=== PATIENT | female | born 1945 | race Caucasian/White ===

== ENCOUNTER 2017-11-16 07:56 | Emergency (ER) | payer OTHER ==
[~2017-11-16] VITALS: Ht 157.5 cm; Wt 74.8 kg
[~2017-11-16 07:56] MED LIST: ACTONEL150 MG; ADULT LOW DOSE81 MG PO; ALTACE10 M1; ALTACE10 M1 PO; ALTACE10 MG PO; ALTACE5 M1 PO; AMLODIPINE BESYL5 MG PO; ANALGESIC325 MG PO; B COMPLETE1 EAC1 PO; BACTRIM DS TAB1 EACH PO; BENTYL 10 MG CA10 M1 PO; BETIMOL10 ML; COUMADIN 1MG TAB1 M1 PO; COUMADIN 3 MG TA3 MG; COUMADIN 3 MG TA3 MG NG; COUMADIN 4 MG TA4 M1 PO; DICLOXACILLIN500 MG PO; DIPHENHIST50 MG PO; DUREZOL5 ML; FLECAINIDE ACE100 MG PO; FOSAMAX; GARLIC OIL1 EACH; HYDROCODONE-AP1 EAC5; IRON325 PO; KEFLEX500 M1 PO; KEFLEX500 MG PO; LOPRESSOR100 M1 PO; LYRICA; METOPROLOL 100100 M1 PO; MOBIC15 MG PO; NEVANAC; NORCO 5-325 TA1 EACH PO; OMEGA 3-6-9 CO1 EACH; OSTEOPOROSIS MED; PREDNISONE50 MG PO; PROTONIX40 M2 PO; TUMS PO; VISTARIL 25 MG25 M1 PO; VITAMIN C + RO500 MG PO; VITAMIN D400 UNI1 PO; VITAMIN E400 UNI6
[2017-11-16 08:49] LABS: ABSOLUTE EOSINOPHILS 0.1 thou/uL (0.0-0.7); ABSOLUTE LYMPHOCYTES 0.9 thou/uL (0.8-5.3); ABSOLUTE MONOCYTES 0.4 thou/uL (0.0-1.2); ABSOLUTE NEUTROPHILS 3.2 thou/uL (1.6-8.1); BASOPHILS 0.8 %; EOSINOPHILS 2.7 %; HEMATOCRIT 42.1 % (37.0-47.0); HEMOGLOBIN 14.4 gm/dL (12.0-15.0); LYMPHOCYTES 19.9 %; MCH 31.9 pg (26.0-34.0); MCHC 34.3 g/dL (28.0-37.0); MONOCYTES 8.3 %; MPV 8.3 fl. (7.2-11.1); NUCLEATED RBCS 0 /100WBC; PLATELET COUNT* 257 thou/uL (150-400); POLYS 68.3 %; RBC 4.52 mil/uL (4.20-5.00); RDW-CV 13.6 % (10.5-14.5); WBC 4.7 thou/uL (4.0-11.0)
[2017-11-16 08:59] LABS: INR 1.7; PROTIME 16.6 Seconds (9.20-11.50)
[2017-11-16 09:32] LABS: ANION GAP 4 mmol/L (7-16); BUN 11 mg/dL (7-18); CALCIUM 8.7 mg/dL (8.5-10.1); CHLORIDE 106 mmol/L (98-107); CO2 30 mmol/L (21-32); CREATININE 0.9 mg/dL (0.6-1.3); GLUCOSE 95 mg/dL (70-99); POTASSIUM 3.8 mmol/L (3.5-5.1); SODIUM 140 mmol/L (136-145)
[2017-11-16 09:41] LABS: ALKALINE PHOSPHATASE 63 U/L (46-116); SGOT 24 U/L (15-37); SGPT 26 U/L (30-65); TOTAL PROTEIN 6.7 g/dL (6.4-8.2); TROPONIN-I LEVEL <0.06 ng/mL (<0.06)
[2017-11-16 09:48] LABS: ALBUMIN 3.5 g/dL (3.4-5.0)
[2017-11-16 11:24] VITALS: BP 132/69
--- NOTE | 2017-11-16 15:01 | EKG ---
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: JESÚS : 1945 Requested By: Talia Eubanks Order Number: [id number] MD: David Lowery Measurements Intervals [place] Rate: 59 P: 49 CO: 226 QRS: -43 QRSD: 118 T: -17 QT: 568 QTc: 563 Interpretive Statements Sinus rhythm Atrial premature complex Prolonged [place] interval Incomplete right bundle branch block left axis Compared to ECG 01/02/2016 09:50:05 Atrial premature complex(es) now present First degree AV block now present Incomplete right bundle-branch block now present Electronically Signed On 11-16-2017 15:01:42 CDT by David Lowery [email or web address] <ELECTRONICALLY SIGNED> By: David Lowery MD, [facility] 11/16/17 1501 0806 0806 David Lowery MD, [facility] /EPI
== END 2017-11-16 11:24 | disposition home or self-care (01) ==
LOC: M.ERS 07:56
PROVIDERS: Personal Emergency Response Attendant
DX: R07.89 Other chest pain (principal); I10 Essential (primary) hypertension; I48.91 Unspecified atrial fibrillation; Z91.040 Latex allergy status; Z91.041 Radiographic dye allergy status; Z88.8 Allergy status to other drugs, medicaments and biological substances; Z91.012 Allergy to eggs; Z91.011 Allergy to milk products; Z91.013 Allergy to seafood; Z90.49 Acquired absence of other specified parts of digestive tract

== ENCOUNTER → 2017-11-29 | Outpatient (CLI) | payer OTHER | LOC: M.ULTRA 12:42 | DX: I73.9 Peripheral vascular disease, unspecified (principal); M79.89 Other specified soft tissue disorders; M79.662 Pain in left lower leg; M79.661 Pain in right lower leg; R10.9 Unspecified abdominal pain ==

== ENCOUNTER 2018-12-23 18:20 | Emergency (ER) | payer OTHER ==
[~2018-12-23] VITALS: Ht 157.5 cm; Wt 74.8 kg
[2018-12-23] MEDS ORDERED: COQ-10100 MG PO (18:34)
[2018-12-23] MEDS ORDERED: LIPITOR10 MG PO (18:35)
[2018-12-23] MEDS ORDERED: COUMADIN 3 MG TA3 M1 PO (18:35)
[2018-12-23] MEDS ORDERED: COUMADIN 4 MG TA4 M1 PO (18:38)
[2018-12-23 19:31] LABS: APTT 38.1 Seconds (25.0-31.3); INR 2.3; PROTIME 22.6 Seconds (9.20-11.50)
[2018-12-23 19:48] VITALS: BP 138/70
== END 2018-12-23 19:50 | disposition home or self-care (01) ==
LOC: M.ERS 18:20
PROVIDERS: Nurse Practitioner Family
DX: S70.11XA Contusion of right thigh, initial encounter (principal); I10 Essential (primary) hypertension; K58.9 Irritable bowel syndrome, unspecified; I48.91 Unspecified atrial fibrillation; Z98.42 Cataract extraction status, left eye; Z90.89 Acquired absence of other organs; Z90.13 Acquired absence of bilateral breasts and nipples; Z90.49 Acquired absence of other specified parts of digestive tract; Z91.012 Allergy to eggs; Z91.013 Allergy to seafood; Z91.040 Latex allergy status; Z91.011 Allergy to milk products; Z88.8 Allergy status to other drugs, medicaments and biological substances; W10.9XXA Fall (on) (from) unspecified stairs and steps, initial encounter; Y92.89 Other specified places as the place of occurrence of the external cause; Y93.89 Activity, other specified; Y99.8 Other external cause status

== ENCOUNTER → 2018-12-26 | Outpatient (CLI) | payer OTHER ==
[~2018-12-26] MED LIST changes: +COQ-10100 MG PO; +COUMADIN 3 MG TA3 M1 PO; +LIPITOR10 MG PO
== END ==
LOC: M.ULTRA 11:21
DX: M79.604 Pain in right leg (principal); M79.81 Nontraumatic hematoma of soft tissue

== ENCOUNTER → 2019-01-25 | Outpatient (CLI) | payer OTHER ==
--- NOTE | 2019-01-25 14:57 | 2DMMODE ---
[place] [address] 2 D/M-MODE ECHOCARDIOGRAM Name: MEGGANARMIDA J Room: [facility]#: [id number] Admission: 01/25/19 Attend Phys: Adela Patton Discharge: Date of : 49 Date of Service: 01/25/19 1457 Report #: [id number] THIS REPORT FOR: //name// APPROVED REPORT Study performed: 01/25/2019 10:52:24 EXAM: Comprehensive 2D, Doppler, and color-flow Echocardiogram Patient Location: Out-Patient Status: routine BSA: 1.76 HR: 70 bpm BP: 132/77 mmHg Rhythm: NSR Other Information Study Quality: Good Indications Atrial Fibrillation Dyspnea 2D Dimensions IVSd: 11.22 (7-11mm) LVOT Diam: 20.37 (18-24mm) LVDd: 49.28 mm PWd: 10.38 (7-11mm) Ascending Ao: 29.84 (22-36mm) LVDs: 29.51 (25-40mm) Aortic Root: 30.92 mm Volumes Left Atrial Volume (Systole) LA ESV Index: 49.00 mL/m2 Aortic Valve AoV Peak Leo.: 1.46 m/s AO Peak Gr.: 8.53 mmHg LVOT Max P.22 mmHg AO Mean Gr.: 4.02 mmHg LVOT Mean P.47 mmHg LVOT Max V: 1.25 m/s AO V2 VTI: 32.51 cm LVOT Mean V: 0.70 m/s MARLENE (VTI): 2.70 cm2 LVOT V1 VTI: 26.97 cm Mitral Valve E/A Ratio: 0.73 MV Decel. Time: 246.56 [place] [address] 2 D/M-MODE ECHOCARDIOGRAM Name: ARMIDA BRODERICK [id number] Admission: 01/25/19 Attend Phys: Adela Patton Discharge: Date of : 49 Date of Service: 01/25/19 1457 Report #: [id number] MV E Max Leo.: 0.66 m/s MV PHT: 71.50 ms MVA (PHT): 3.08 cm2 TDI E/Lateral E': 8.25 E/Medial E': 9.43 Medial E' Leo.: 0.07 m/s Lateral E' Leo.: 0.08 m/s Pulmonary Valve PV Peak Leo.: 1.13 m/s PV Peak Gr.: 5.11 mmHg Tricuspid Valve RAP Estimate: 5.00 mmHg TR Peak Gr.: 19.15 mmHg RVSP: 24.00 mmHg PA Pressure: 24.00 mmHg Left Ventricle The left ventricle is normal size. There is normal LV segmental wall motion. There is normal left ventricular wall thickness. Left ventricular systolic function is normal. The left ventricular ejection fraction is within the normal range. LVEF is 60%. Grade I - abnormal relaxation pattern. Right Ventricle The right ventricle is normal size. The right ventricular systolic function is normal. Atria Left atrium is moderately dilated. The right atrium size is normal. Aortic Valve The aortic valve is normal in structure. No aortic regurgitation is present. There is no aortic valvular stenosis. Mitral Valve The mitral valve is normal in structure. Mild mitral regurgitation. No evidence of mitral valve stenosis. Tricuspid Valve The tricuspid valve is normal in structure. Trace tricuspid regurgitation. No pulmonary hypertension. Pulmonic Valve The pulmonary valve is normal in structure. [place] [address] 2 D/M-MODE ECHOCARDIOGRAM Name: ARMIDA BRODERICK Room: [facility]#: [id number] Admission: 01/25/19 Attend Phys: Adela Patton Discharge: Date of : 49 Date of Service: 01/25/19 1457 Report #: [id number] valvular regurgitation. Great Vessels The aortic root is normal in size. IVC is normal in size and collapses >50% with inspiration. Pericardium There is no pericardial effusion. <Conclusion> The left ventricle is normal size. There is normal left ventricular wall thickness. Left ventricular systolic function is normal. The left ventricular ejection fraction is within the normal range. Grade I - abnormal relaxation pattern. The right ventricle is normal size. Left atrium is moderately dilated. The right atrium size is normal. The aortic valve is normal in structure. The mitral valve is normal in structure. Mild mitral regurgitation. The tricuspid valve is normal in structure. IVC is normal in size and collapses >50% with inspiration. There is no pericardial effusion. There is normal LV segmental wall motion. LVEF is 60%. <ELECTRONICALLY SIGNED> By: Luc Freedman MD, FACC 01/25/19 1457 1457 1457 Luc Freedman MD, FACC /INF
--- NOTE | 2019-01-25 17:09 | CARDNUC ---
[place] [address] CARDIAC NUCLEAR IMAGING REPORT Name: MEGGANARMIDA J Room: [facility]#: [id number] Admission: 01/25/19 Attend Phys: Adela Patton Discharge: Date of : 49 Date of Service: 01/25/19 1709 Report #: [id number] THIS REPORT FOR: //name// APPROVED REPORT Imaging Protocol: Rest Tc-99m/Stress Tc-99m 1 day Study performed: 01/25/2019 08:15:00 Indication: Atrial Fibrillation Patient Location: Out-Patient Stress Tech: Cristina Buck Stress Nurse: Daisy Collins RN NM Tech:JOSE Way Ht: 5 ft 2 in Wt: 162 lbs BSA: 1.75 m2 BMI: 29.62 Medical History Medical History: Atrial Fibrillation, HTN, Hyperlipidemia Medications: aroevastatin, flecainide, metoprolol, ramipril, warfarin Allergies: cortisone, iodine Cardiac Risk Factors: age, Hyperlipidemia, HTN, FHX of CAD Exercise History: Sedentary Meds Held (24 hrs): metoprolol Resting Data Rest SPECT myocardial perfusion imaging was performed in supine position 30 minutes following the intravenous injection of 10.2 mCi of Tc-99m Sestamibi. Time of rest injection: 0855 Date: 01/25/2019 The images were gated to evaluate regional wall motion and calculate left ventricular ejection fraction. Administration Route: IV Administration Site: Right AC Pharmacologic Stress Pharmacologic stress test was performed by injecting Regadenoson 0.4 mg IV push over 10-15 seconds immediately followed by the intravenous injection of 36.0 mCi of Tc-99m Sestamibi. Time of stress injection: 1050 Date: 01/25/2019 Administration Route: IV Administration Site: Right AC Gated Stress SPECT was performed 40 minutes [place] [address] CARDIAC NUCLEAR IMAGING REPORT Name: ARMIDA BRODERICK [id number] Admission: 01/25/19 Attend Phys: Adela Patton Discharge: Date of : 49 Date of Service: 01/25/19 1709 Report #: [id number] injection. The images were gated to evaluate regional wall motion and calculate left ventricular ejection fraction. Prone imaging was performed. Stress Test Details Stress Test: Pharmacologic stress testing performed using 0.4 mg of regadenoson per 5 mL given IV over 10 seconds. Reason for pharmacologic stress test: physical limitation. HR Max Heart Rate (APMHR): 149 bpm Resting HR: 62 bpm Target HR (85% APMHR): 126 bpm Max HR Achieved: 88 bpm % of APMHR: 59 Recovery HR: 80 bpm BP Resting BP: 135/92 mmHg Max BP: 99/67 mmHg Recovery BP: 132/77 mmHg ECG Resting ECG: Sinus Rhythm Stress ECG: Sinus Rhythm ST Change: None Arrhythmia: None Recovery ECG: Sinus Rhythm Recovery ST Change: None Recovery Arrhythmia: None Clinical Reason for Termination: Completed protocol Exercise duration: 0 min sec Exercise capacity: 1 METs The patient tolerated Lexiscan infusion without significant symptoms. Nurse Comments pt needs assistance in walking Stress ECG Conclusion The baseline 12-lead EKG shows sinus rhythm thousand Mr. T wave abnormality. EKGs obtained during and post Lexiscan infusion show sinus rhythm with no significant ST or T wave changes when compared to baseline. There were no stress-induced arrhythmias[place] [address] CARDIAC NUCLEAR IMAGING REPORT Name: ARMIDA BRODERICK Room: [facility]#: [id number] Admission: 01/25/19 Attend Phys: Adela Patton Discharge: Date of : 49 Date of Service: 01/25/19 1709 Report #: [id number] Study: Good Artifact: Mild apical thinning,Diaphragmatic artifact Study Data At rest, the left ventricular ejection fraction was 60%.. Post stress, the left ventricular ejection was 68%.. TID = 0.97. Perfusion There is a focal perfusion defect of mild intensity involving the apex on both rest and stress images. Wall motion in this region on gated studies appears normal. This is likely due to apical thinning artifact. On supine images at stress and rest there is mild photopenia in the inferior wall that resolves completely on post stress prone imaging suggesting diaphragmatic attenuation artifact. No reversible defects were identified. Wall Motion Normal left ventricular wall motion. Nuclear Conclusion ECG Findings: negative for ischemia Clinical Findings: negative for ischemia Nuclear Findings: negative for ischemia Exercise Capacity: not assessed Left Ventricular Function: normal Risk Study: low Myocardial perfusion images show no reversible defect to suggest ischemia. Focal defects of the inferior wall are due to diaphragmatic attenuation artifact. Focal defect of the apex is due to apical thinning. Global LV systolic function is normal with normal wall motion. This is a low risk study. <Conclusion> The baseline 12-lead EKG shows sinus rhythm thousand Mr. T wave abnormality. EKGs obtained during and post Lexiscan infusion show sinus rhythm with no significant ST or T wave changes when compared to baseline. There were no stress-induced arrhythmias. <ELECTRONICALLY SIGNED> By: Chris Mtz MD, FACC 01/25/191708 08 08 Chris Mtz MD, FACC /INF
== END ==
LOC: M.NUC 08:12
DX: I48.0 Paroxysmal atrial fibrillation (principal); I10 Essential (primary) hypertension; R06.02 Shortness of breath; Z79.899 Other long term (current) drug therapy

== ENCOUNTER → 2019-04-18 | Outpatient (CLI) | payer OTHER | LOC: M.RAD 15:41 | DX: M25.861 Other specified joint disorders, right knee (principal); W19.XXXA Unspecified fall, initial encounter ==

== ENCOUNTER 2019-06-15 11:04 | Emergency (ER) | payer OTHER ==
[~2019-06-15] VITALS: Ht 157.5 cm; Wt 74.8 kg
[2019-06-15 12:46] VITALS: BP 120/59
== END 2019-06-15 12:46 | disposition home or self-care (01) ==
LOC: M.ERS 11:04
DX: S82.51XA Displaced fracture of medial malleolus of right tibia, initial encounter for closed fracture (principal); I10 Essential (primary) hypertension; I48.91 Unspecified atrial fibrillation; K58.9 Irritable bowel syndrome, unspecified; Z90.49 Acquired absence of other specified parts of digestive tract; Z90.13 Acquired absence of bilateral breasts and nipples; Z91.013 Allergy to seafood; Z91.040 Latex allergy status; Z91.012 Allergy to eggs; Z88.8 Allergy status to other drugs, medicaments and biological substances; W18.39XA Other fall on same level, initial encounter; Y93.89 Activity, other specified; Y92.89 Other specified places as the place of occurrence of the external cause; Y99.8 Other external cause status

== ENCOUNTER 2020-10-02 06:02 | Observation (INO) | payer OTHER ==
[~2020-10-02] VITALS: Ht 157.5 cm; Wt 71.9 kg
[2020-10-02 06:05] VITALS: BP 124/97
[2020-10-02 06:35] LABS: ABSOLUTE EOSINOPHILS 0.1 thou/uL (0.0-0.7); ABSOLUTE LYMPHOCYTES 1.1 thou/uL (0.8-5.3); ABSOLUTE MONOCYTES 0.5 thou/uL (0.0-1.2); ABSOLUTE NEUTROPHILS 4.9 thou/uL (1.6-8.1); BASOPHILS 0.7 %; EOSINOPHILS 0.9 %; HEMATOCRIT 38.7 % (37.0-47.0); LYMPHOCYTES 16.4 %; MCH 32.1 pg (26.0-34.0); MCHC 33.7 g/dL (28.0-37.0); MCV 95.2 fL (80.0-100.0); MONOCYTES 7.1 %; MPV 7.9 fl. (7.2-11.1); NUCLEATED RBCS 0 /100WBC; PLATELET COUNT* 324 thou/uL (150-400); POLYS 74.9 %; RBC 4.06 mil/uL (4.20-5.00); RDW-CV 15.4 % (10.5-14.5); WBC 6.5 thou/uL (4.0-11.0)
[2020-10-02 06:40] LABS: CALCIUM 8.7 mg/dL (8.5-10.1); CREATININE 0.8 mg/dL (0.6-1.3)
[2020-10-02 06:50] LABS: ALBUMIN 3.7 g/dL (3.4-5.0); MAGNESIUM 2.1 mg/dL (1.8-2.4); POTASSIUM 2.9 mmol/L (3.5-5.1); TOTAL BILIRUBIN 1.1 mg/dL (<0.1-1.0); TOTAL PROTEIN 6.9 g/dL (6.4-8.2)
--- NOTE | 2020-10-02 07:36 | NUR ---
PT C/O PAIN AND SWELLING TO LEFT KNEE AFTER A FALL SHE STATES WAS APPROX 3 MONTHS AGO. PT STATES SHE HAS BEEN SEEN BY HER DOCTOR FOR THIS ALREADY. PT DENIES NEED FOR AN X-RAY OF KNEE AT THIS TIME.
[2020-10-02 08:07] LABS: URINE BILIRUBIN NEGATIVE (Negative); URINE BLOOD TRACE (Negative); URINE CLARITY CLEAR; URINE COLOR YELLOW; URINE GLUCOSE-RANDOM NEGATIVE (Negative); URINE KETONES NEGATIVE (Negative); URINE LEUKOCYTES-REFLEX NEGATIVE (Negative); URINE NITRITE-REFLEX NEGATIVE (Negative); URINE PROTEIN NEGATIVE (Negative); URINE UROBILINOGEN 0.2 E.U./dl (0.2-1.0)
--- NOTE | 2020-10-02 08:33 | NUR ---
PT NOR PT'S FAMILY MEMBERS KNOW EXACTLY WHAT THE PATIENT'S ALLERGY TO IODINE IS. DR. SERVIN IS SPEAKING WITH PT AT THIS TIME WITH CONCERNS OF CTA SCAN VS VQ SCAN.
[2020-10-02 10:01] LABS: CALCIUM 8.4 mg/dL (8.5-10.1); CREATININE 0.6 mg/dL (0.6-1.3); POTASSIUM 3.5 mmol/L (3.5-5.1)
--- NOTE | 2020-10-02 12:02 | EKG ---
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: [facility] : 1945 Requested By: Becca Gross Order Number: [id number] MD: David Lowery Measurements Intervals [place] Rate: 62 P: 44 SD: 220 QRS: -61 QRSD: 106 T: -8 QT: 468 QTc: 476 Interpretive Statements Sinus rhythm Prolonged SD interval Consider left atrial enlargement Inferior infarct, old Baseline wander in lead(s) V4 Compared to ECG 11/16/2017 08:06:17 Atrial premature complex(es) no longer present Electronically Signed On 10-02-2020 12:02:28 CDT by David Lowery [email or web address] <ELECTRONICALLY SIGNED> By: David Lowery MD, [facility] 10/02/20 1202 7 06 David Lowery MD, [facility] /EPI
[2020-10-02 12:45] VITALS: BP 168/64
--- NOTE | 2020-10-02 13:31 | NUR ---
PT'S SISTER REPORTS THAT THE PATIENT WAS TAKEN OFF OF HER COUMADIN 7.5 MG DOSAGE FOR THE LAST 3 DAYS DUE TO ELEVATED INR LEVELS. THE PATIENT IS SUPPOSED TO START TAKING HER USUAL DOSAGE OF COUMADIN 7.5 MG AGAIN TONIGHT 10/02/20.
[2020-10-02 14:41] VITALS: BP 168/64
[2020-10-02 15:01] VITALS: BP 115/98
[2020-10-02 20:00] VITALS: BP 143/64
--- NOTE | 2020-10-02 20:00 | NUR ---
RECEIVED REPORT AND ASSUMED CARE OF PT, ASSESSMENT COMPLETED. PT SITTING UP IN BED RUBBING HER LT KNEE AND DEBORAH LOWER LEGS. PT ABLE TO ANSWER ORIENTATION QUESTIONS BUT CONVERSATION NOT CLEAR. TELEMETRY ON SHOWING SR WITH 1ST AVB AND BBB. WILL CONT TO MONITOR AND ASSIST NEEDED.
[2020-10-02 20:59] LABS: INR 1.8; PROTIME 18.4 Seconds (9.20-11.50)
[2020-10-02 23:51] VITALS: BP 133/56
[2020-10-03 03:46] VITALS: BP 143/69
[2020-10-03 04:35] LABS: ABSOLUTE EOSINOPHILS 0.1 thou/uL (0.0-0.7); ABSOLUTE LYMPHOCYTES 1.4 thou/uL (0.8-5.3); ABSOLUTE MONOCYTES 0.5 thou/uL (0.0-1.2); ABSOLUTE NEUTROPHILS 3.2 thou/uL (1.6-8.1); BASOPHILS 0.6 %; EOSINOPHILS 2.4 %; HEMATOCRIT 34.6 % (37.0-47.0); HEMOGLOBIN 11.9 gm/dL (12.0-15.0); LYMPHOCYTES 27.3 %; MCH 32.5 pg (26.0-34.0); MCHC 34.4 g/dL (28.0-37.0); MCV 94.5 fL (80.0-100.0); MONOCYTES 9.1 %; MPV 7.8 fl. (7.2-11.1); NUCLEATED RBCS 0 /100WBC; PLATELET COUNT* 270 thou/uL (150-400); POLYS 60.6 %; RBC 3.67 mil/uL (4.20-5.00); RDW-CV 15.4 % (10.5-14.5); WBC 5.2 thou/uL (4.0-11.0)
[2020-10-03 04:48] LABS: INR 1.2; PROTIME 12.8 Seconds (9.20-11.50)
[2020-10-03 04:50] LABS: CALCIUM 8.7 mg/dL (8.5-10.1); CREATININE 0.7 mg/dL (0.6-1.3); POTASSIUM 3.3 mmol/L (3.5-5.1)
--- NOTE | 2020-10-03 06:56 | NUR ---
SLEPT WELL TONIGHT. ASSISTED TO BR AND BACK, GAIT UNSTEADY AND HOLDS ONTO FURNITURE ALSO. DENIES CHEST PAIN OR SOA. ASSESSMENT UNCHANGED. HS GOALS OF REST AND SAFETY ACHIEVED. HOURLY ROUNDING OBSERVED.
[2020-10-03 08:00] VITALS: BP 147/79
[2020-10-03] MEDS ORDERED: LIPITOR 20 MG T20 M1 PO (10:05)
[2020-10-03] MEDS ORDERED: DICLOFENAC SOD100 G1 TOP (10:05)
[2020-10-03] MEDS ORDERED: LOPRESSOR50 PO (10:05)
[2020-10-03] MEDS ORDERED: NEURONTIN 300M300 M2 PO (10:26)
[2020-10-03] MEDS ORDERED: TYLENOL EXTRA500 MG PO (10:26)
[2020-10-03] MEDS ORDERED: TRAMADOL 50 MG50 MG PO (10:26)
[2020-10-03] MEDS ORDERED: OXYCODONE HCL 55 MG PO (10:26)
[2020-10-03] MEDS ORDERED: MIRALAX17 GM PO (10:26)
[2020-10-03] MEDS ORDERED: JANTOVEN3 MG PO (11:04)
[2020-10-03] MEDS ORDERED: JANTOVEN4 MG PO (11:05)
[2020-10-03 11:18] VITALS: BP 147/79
--- NOTE | 2020-10-03 12:21 | NUR ---
Patient given d/c papers and education. Patient verbalized understanding. Patient sister taking her home, all belongings with patient. IV taken out and curtain supervisor taken off.
--- NOTE | 2020-10-05 12:45 | CON ---
[address] [address] CONSULTATION Name: ARMIDA BRODERICK Room: [address] Joel Rod#: [id number] Admission: 10/02/20 Attend Phys: Saúl Oviedo MD Discharge: 10/03/20 Date of : 49 Report #: [id number] THIS REPORT FOR: cc: Minnie Galdamez Stephanie A. FNP Blick, David R. MD [facility] ~ DOC #: [id number] cc: EDGARD Holt MD [facility] DATE OF CONSULTATION: 10/02/2020 CARDIOLOGY CONSULTATION HISTORY OF PRESENT ILLNESS: The patient is a 75-year-old single white female who I was asked to see in the hospital today after she complained of left shoulder pain. The patient has a previous history of atrial fibrillation, although she never required cardioversion. She has been chronically anticoagulated. She previously was on flecainide, but after she remained in sinus rhythm, she eventually was taken off of flecainide. She is followed by my partner, Dr. Chris Mtz. She has no history of coronary artery disease. She is not very active this time because of arthritis. She has used a walker in the past. She does have her INR checked frequently. Apparently a month ago, she fell and injured the left side of her body. She has been having some knee pain. She also has been having pain in her left shoulder. She has complained to being weak lately. She awakened at 05:30 this morning with some chest discomfort and left shoulder pain. She called for help and was brought to the emergency room by private vehicle. She was admitted for further evaluation and treatment. She denied any discomfort being related to food. She denied any swelling of her left arm. She denied any shortness of breath, palpitations, or bleeding. PAST MEDICAL HISTORY: She has a history of hyperlipidemia. No history of hypertension. PAST SURGICAL HISTORY: She has a history of previous appendectomy, mastectomy for cancer, and tonsillectomy. MEDICATIONS: Include Lipitor, metoprolol, and warfarin. ALLERGIES: SHE HAS A PREVIOUS INTOLERANCE TO IODINE. FAMILY HISTORY: Negative for heart disease. SOCIAL HISTORY: She is single, never been and [place] [address] CONSULTATION Name: ARMIDA BRODERICK [address] [id number] Admission: 10/02/20 Attend Phys: Saúl Oviedo MD Discharge: 10/03/20 Date of : 49 Report #: [id number] She is retired from working at [employer]. No smoking, no alcohol abuse. REVIEW OF SYSTEMS: No history of stroke, asthma, liver disease, or kidney disease. She had breast cancer. She has arthritis. She has had an injection in her right knee in the past. She wears glasses. She has seen a chiropractor recently. No psychiatric illness. No chronic skin condition. PHYSICAL EXAMINATION: GENERAL: Revealed an elderly female lying in bed. She appeared in no acute distress. VITAL SIGNS: She had a blood pressure of 130/70 and pulse is 60. She is afebrile. HEENT: She was anicteric. Conjunctivae pink. Mucosa is moist. NECK: Veins not distended. No carotid bruits. Supple. CHEST: Clear to auscultation. CARDIAC: Regular rate and rhythm without murmur. ABDOMEN: Soft. EXTREMITIES: No edema. Posterior tibial pulse 1+ bilaterally. SKIN: Cool and dry. NEUROLOGIC: Nonfocal. LYMPHATIC: No adenopathy. MUSCULOSKELETAL: She did have some deformity of the interphalangeal joints of the hands. DIAGNOSTIC DATA: Her ECG on admission showed a sinus rhythm, left axis deviation. Her previous echocardiogram in 2019 showed normal left ventricular systolic function, left atrial enlargement, and mild mitral regurgitation. She actually had a nuclear stress test back in 01/2019 here at [place] using Lexiscan that showed ejection fraction of 60%, apical thinning, diaphragmatic attenuation, but there is no obvious ischemia. Her workup in the emergency room last night, she had a chest x-ray that showed normal heart size and clear lung dominique. Previous laboratory studies from last night included sodium 143, potassium 3.5, and creatinine 0.6. Troponins were all less than 0.06. In 2016, her TSH was 1.24. White blood cell count was 6.5 and hemoglobin 13.0. Her COVID antigen stat test last night was negative. ASSESSMENT AND RECOMMENDATIONS: 1. Left shoulder, suspect noncardiac. Recommend no further cardiac evaluation. 2. History of atrial fibrillation. The patient is no longer on flecainide. The patient is on a beta-arias. I would continue anticoagulation and maintain an INR of 2-3. INR on 12/23/2018 was 2.3. 3. Degenerative joint disease. 4. Recent fall. 5. Recent INR of 5. The [place] [address] CONSULTATION Name: ARMIDA BRODERICK Room: [address] Joel AdelaJudyAlmazJudy#: [id number] Admission: 10/02/20 Attend Phys: Saúl Oviedo MD Discharge: 10/03/20 Date of : 49 Report #: [id number] 6. History of breast cancer. 7. Hyperlipidemia. The patient is on a statin drug. David Lowery MD FACC DRB/LEVAR <ELECTRONICALLY SIGNED> By: David Lowery MD, [facility] 10/05/20 1245 1441 2038Dapreston Lowery MD, [facility] /nt
== END 2020-10-03 12:10 | disposition home or self-care (01) ==
LOC: M.ERS 06:02 → M.TBA-ER 08:47 → M.2W 14:54
PROVIDERS: Emergency Medicine; Internal Medicine Cardiovascular Disease; ADMIT Internal Medicine; ATTEND Internal Medicine
DX: R07.89 Other chest pain (principal); Z20.822 Contact with and (suspected) exposure to COVID-19; M25.562 Pain in left knee; E87.6 Hypokalemia; I48.91 Unspecified atrial fibrillation; I10 Essential (primary) hypertension; Z79.899 Other long term (current) drug therapy

== ENCOUNTER 2020-10-19 06:41 | Emergency (ER) | payer OTHER ==
[~2020-10-19] VITALS: Ht 157.5 cm; Wt 72.1 kg
[~2020-10-19 06:41] MED LIST changes: +DICLOFENAC SOD100 G1 TOP; +JANTOVEN3 MG PO; +JANTOVEN4 MG PO; +LIPITOR 20 MG T20 M1 PO; +LOPRESSOR50 PO; +MIRALAX17 GM PO; +NEURONTIN 300M300 M2 PO; +OXYCODONE HCL 55 MG PO; +TRAMADOL 50 MG50 MG PO; +TYLENOL EXTRA500 MG PO
[2020-10-19 07:46] LABS: HEMATOCRIT 41.3 % (37.0-47.0); HEMOGLOBIN 14.3 gm/dL (12.0-15.0); MCHC 34.7 g/dL (28.0-37.0); MCV 95.2 fL (80.0-100.0); MPV 7.7 fl. (7.2-11.1); RBC 4.34 mil/uL (4.20-5.00); RDW-CV 14.3 % (10.5-14.5); WBC 6.8 thou/uL (4.0-11.0)
[2020-10-19 07:55] LABS: CALCIUM 8.9 mg/dL (8.5-10.1); CREATININE 0.8 mg/dL (0.6-1.3); POTASSIUM 3.8 mmol/L (3.5-5.1)
[2020-10-19 08:00] LABS: ALBUMIN 3.7 g/dL (3.4-5.0); TOTAL BILIRUBIN 1.1 mg/dL (<0.1-1.0); TOTAL PROTEIN 6.7 g/dL (6.4-8.2)
[2020-10-19 08:05] LABS: INR 1.4; PROTIME 14.3 Seconds (9.20-11.50)
[2020-10-19 09:15] VITALS: BP 157/74
--- NOTE | 2020-10-19 11:53 | EKG ---
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: [place] : 1945 Requested By: Axel Trejo Order Number: [id number] MD: David Lowery Measurements Intervals [place] Rate: 57 P: 67 OR: 229 QRS: -57 QRSD: 125 T: 8 QT: 536 QTc: 522 Interpretive Statements Sinus rhythm Prolonged [place] interval Nonspecific IVCD with LAD Borderline T abnormalities, anterior leads Compared to ECG 10/02/2020 06:08:23 no change Electronically Signed On 10-19-2020 11:53:17 CDT by David Lowery [email or web address] <ELECTRONICALLY SIGNED> By: David Lowery MD, [facility] 10/19/20 1153 0646 0646 David Lowery MD, [facility] /EPI
== END 2020-10-19 09:16 | disposition home or self-care (01) ==
LOC: M.ERS 06:41
PROVIDERS: Emergency Medicine
DX: R07.89 Other chest pain (principal); I10 Essential (primary) hypertension; K58.9 Irritable bowel syndrome, unspecified; Z91.041 Radiographic dye allergy status; Z91.040 Latex allergy status; Z88.8 Allergy status to other drugs, medicaments and biological substances; Z91.012 Allergy to eggs; Z91.013 Allergy to seafood; Z90.89 Acquired absence of other organs; Z90.49 Acquired absence of other specified parts of digestive tract

== ENCOUNTER 2021-01-10 13:01 | Emergency (ER) | payer OTHER ==
[~2021-01-10] VITALS: Ht 157.5 cm; Wt 71.7 kg
[2021-01-10] MEDS ORDERED: TAMBOCOR 100 M100 M1 PO (13:13)
[2021-01-10] MEDS ORDERED: SERTRALINE HCL100 MG PO (13:14)
[2021-01-10] MEDS ORDERED: METOPROLOL TART25 MG PO (13:14)
[2021-01-10] MEDS ORDERED: DICYCLOMINE HCL20 MG PO (13:14)
[2021-01-10 13:41] LABS: ABSOLUTE BASOPHILS 0.1 thou/uL (0.0-0.2); ABSOLUTE EOSINOPHILS 0.1 thou/uL (0.0-0.7); ABSOLUTE LYMPHOCYTES 1.5 thou/uL (0.8-5.3); ABSOLUTE MONOCYTES 0.5 thou/uL (0.0-1.2); ABSOLUTE NEUTROPHILS 4.4 thou/uL (1.6-8.1); BASOPHILS 0.8 %; EOSINOPHILS 1.9 %; HEMOGLOBIN 13.9 gm/dL (12.0-15.0); LYMPHOCYTES 22.6 %; MCH 31.2 pg (26.0-34.0); MCHC 33.8 g/dL (28.0-37.0); MCV 92.3 fL (80.0-100.0); MONOCYTES 8.3 %; MPV 7.9 fl. (7.2-11.1); NUCLEATED RBCS 0 /100WBC; PLATELET COUNT* 291 thou/uL (150-400); POLYS 66.4 %; RBC 4.45 mil/uL (4.20-5.00); RDW-CV 13.8 % (10.5-14.5); WBC 6.6 thou/uL (4.0-11.0)
[2021-01-10 13:42] LABS: CALCIUM 8.8 mg/dL (8.5-10.1); CREATININE 0.8 mg/dL (0.6-1.3); POTASSIUM 3.2 mmol/L (3.5-5.1)
[2021-01-10 13:52] LABS: ALBUMIN 3.7 g/dL (3.4-5.0); MAGNESIUM 2.2 mg/dL (1.8-2.4); TOTAL BILIRUBIN 1.1 mg/dL (<0.1-1.0); TOTAL PROTEIN 6.7 g/dL (6.4-8.2)
[2021-01-10 14:17] VITALS: BP 158/70
--- NOTE | 2021-01-11 10:39 | EKG ---
[place] [address] ELECTROCARDIOGRAM REPORT Name: ARMIDA BRODERICK Room: [facility]#: [id number] Admission: 01/10/21 Attend Phys: Discharge: 01/10/21 Date of : 49 Date of Service: 01/10/21 1304 Report #: [id number] THIS REPORT FOR: //name// [facility] ED Test Date: 2021-01-10 Test Time: 13:04:20 Pat Name: ARMIDA BRODERICK Department: Room: Gender: F Metrology Technician: JANIA : 1945 Requested By: Oscar Scanlon Order Number: [id number] MD: David Lowery Measurements Intervals [place] Rate: 51 P: 48 [place]: 228 QRS: -54 QRSD: 124 T: 8 QT: 482 QTc: 444 Interpretive Statements Sinus bradycardia Prolonged [place] interval left anterior fasicular block Compared to ECG 10/19/2020 06:46:20 no change Electronically Signed On 01-11-2021 10:39:37 CDT by David Lowery [email or web address] <ELECTRONICALLY SIGNED> By: David Lowery MD, FACC 01/11/21 1039 1304 1304 David Lowery MD, [facility] /EPI
== END 2021-01-10 14:18 | disposition home or self-care (01) ==
LOC: M.ERS 13:01
PROVIDERS: Family Medicine
DX: I10 Essential (primary) hypertension (principal); I48.91 Unspecified atrial fibrillation; Z90.89 Acquired absence of other organs; Z90.49 Acquired absence of other specified parts of digestive tract; Z79.899 Other long term (current) drug therapy; Z91.012 Allergy to eggs; Z91.02 Food additives allergy status; Z91.040 Latex allergy status; Z91.013 Allergy to seafood; Z88.8 Allergy status to other drugs, medicaments and biological substances